=== PATIENT | female | born 1995 | race Native Hawaiian/Other Pacific Islander ===

== ENCOUNTER 2017-03-29 17:13 | Outpatient (CLI) | payer OTHER ==
[~2017-03-29] VITALS: Ht 170.2 cm; Wt 104.0 kg
[2017-03-29 17:32] VITALS: BP 108/63
[2017-03-29] MEDS ORDERED: PRENTAB9 PO (18:07)
[2017-03-29 18:20] VITALS: BP 122/67
--- NOTE | 2017-03-30 12:51 | HPE ---
DATE OF ADMISSION: 03/29/2017 A 21-year-old 2, para 0, abortio 1 at 6 weeks, last menstrual period (LMP) 06/29/2016, estimated date of confinement (EDC) 04/05/2017 at 39 weeks, has decreased movement today. Risk factors are increased weight gain in the , low-grade squamous intraepithelial lesion (LGSIL) on Pap and has had a urinary tract infection (UTI) at the beginning of . Test of cure was negative. LABORATORY DATA: O+, HIV negative, RPR negative, rubella immune. Varicella immune. Pap is LGSIL. Urine was positive, test of cure negative. Gonorrhea and chlamydia are negative. Early one-hour glucose 75, 28-week GTT 106. GBS is negative. Quad screen is negative and CF was negative. PHYSICAL EXAMINATION: On examination, no acute distress. Symphysis fundus height is 39, vertex presenting, nontender uterus. Category 1 strip. No contractions. No vaginal bleeding or loss. Blood pressure is 108/63, respirations are 18, pulse 71, temperature is 97.4. The rest of the examination is unremarkable. She is normocephalic, atraumatic. Neck: Full range of motion. Pupils are equal and reactive to light. Distal pulses are symmetric. No evidence of deep vein thrombosis (DVT), pulmonary embolism (PE), or superficial phlebitis. Chest is clear bilaterally to the bases. No wheezes or rhonchi. No costovertebral angle (CVA) tenderness. Abdomen is soft. Four quadrant bowel sounds are noted and nontender uterus. No rashes or pruritus. No arthralgia or myalgia. No complaints of cough, wheezes, shortness of breath, or dyspnea on exertion. No chest pain. Not bleeding. Neurologically complete. No nausea, vomiting, diarrhea, or constipation. No urgency or frequency. No diabetic issues. 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 No family history. She does not smoke, drink or abuse drugs. She is and there is no domestic violence. In summary, we have a 39 weeker with a category 1 strip with improved movements. The patient was discharged with instructions regarding kick chart, premature rupture of membranes, bleeding and labor. She has an appointment 04/02/2017.
[2017-06-23] MEDS ORDERED: IRON1TAB PO (13:14)
== END 2017-03-29 18:20 | disposition home or self-care (01) ==
LOC: M LDO 17:13
PROVIDERS: ATTEND Obstetrics & Gynecology
DX: O36.8130 Decreased fetal movements, third trimester, not applicable or unspecified (principal); O26.03 Excessive weight gain in pregnancy, third trimester; O34.40 Maternal care for other abnormalities of cervix, unspecified trimester; R87.612 Low grade squamous intraepithelial lesion on cytologic smear of cervix (LGSIL); Z3A.39 39 weeks gestation of pregnancy

== ENCOUNTER 2017-04-04 14:56 | Inpatient (IN) | payer OTHER ==
[~2017-04-04] VITALS: Ht 170.2 cm; Wt 104.0 kg
[2017-04-04] VITALS (24 sets, daily range): BP systolic 102–144; BP diastolic 53–85
[~2017-04-04 14:56] MED LIST: PRENTAB9 PO
[2017-04-04] MEDS ORDERED: ACET50TA PO (15:15)
[2017-04-04] MEDS ORDERED: LACTATED RINGER'S 1000 ML IV STA (16:38)
[2017-04-04] MEDS ORDERED: LR 1,000 ML IV SCH (16:38)
--- NOTE | 2017-04-04 16:53 | HPEPDOC ---
Obstetrical History & Physical General Date of Admission Apr 04, 2017 at 16:35 History of Present Illness 21 y/o at 39+6 to L&D for a continuous LOF that started late AM. No VB. Some ctx's. Pos FM. Chief Complaint: Contractions, term Information Provided By: Patient Care Care: Good Care Dating Final EDC by: LMP, 1st trimester (US) Antepartum Course Diagnos(e)s UTI at NOB. 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 (x1) Past Medical History Medical History counseling for depression, no meds Surgical History: Denies/None Family History Significant Family History: No pertinent family hx Social History Marital Status: Family situation: Spouse/partner home Psychosocial History: No pertinent psych hx * Smoker: non-smoker Alcohol: Denies Drugs: denies Abuse Violence Screening Have you been hit/kicked/slapp: No Have you been sexually assault: No Imunizations Tdap status: current Influenza Status: current Allergies Coded Allergies: No Known Allergies (Unverified , 03/29/17) Medications Scheduled Acetaminophen (Mapap) 500 Mg Tab, 500 MG PO DAILY Multivitamins/ ( 27-0.8 mg) 1 Tab Tab, 1 TAB PO DAILY Physical Examination Physical Examination GENERAL: Alert and oriented times three. ABDOMEN: Gravid and non-tender to touch. FETUS: vertex (VTX) by sterile vaginal examination (SVE), SSE shows pooling that is significant and nitr pos. EXTREMITIES: No edema. No clonus. Vital Signs/I&O Vital Signs Date Time Temp Pulse Resp B/P (MAP) Pulse Ox O2 Delivery O2 Flow Rate FiO2 04/04/17 15:16 18 Laboratory Data Urine Culture: No Growth (second cultrure, firts with UTI that was tx'd.) Pertinent Laboratoy Data Blood Type: O+ RBC Antibody Screen: Negative HIV: Negative Hepatitis B: Negative Hepatitis C: Unknown Rapid Plasma Reagin: Nonreactive Rubella: Immune Varicella: Immune Chlamydia/Gonorrhea: Negative Group B Streptococcus: Negative Quad Screen Test: Negative Cystic Fibrosis: Negative Glucose Tolerance Test: 106 Anatomy Ultrasound Placenta Location: Anterior Normal Anatomy: Yes Placenta Previa: No Estimated Weight (grams): 3400 Vaginal Examination Dilation: 3 cm Effacement: 75% Station: -2 Cervical Consistency: Medium Cervical Position: Middle Presentation: Cephalic presentation Assessment Variability: Moderate Accelerations: Positive Decelerations: None Tocometer Frequency: regular Duration: greater than 60 seconds Assessment/Plan Assessment SROM confirmed. Cx /-2. Plan Admit and orient. 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 Diet: clrs Group B Streptococcus (GBS) neg Labs and intravenous (IV) per unit protocol. Counseled on Pitocin possibility Lactated Ringers (LR): Bolus 1000 prior to epidural, o/w 125/hr Anticipate normal spontaneous delivery () C-S as appropriate. Sessions SESSIONS,JOEL Zhang MD Apr 04, 2017 16:53
[2017-04-04 17:40] LABS: MEAN CORPUSCULAR HEMOGLOBIN 29.8 pg (27.0-33.0); MEAN CORPUSCULAR HGB CONC 34.2 g/dl (32.0-36.5); MEAN CORPUSCULAR VOLUME 87.1 fl (80.0-96.0); RED CELL DISTRIBUTION WIDTH 12.6 % (11.5-14.5)
--- NOTE | 2017-04-04 21:10 | IPNPDOC ---
Text Note Date of Service The patient was seen on 04/04/17. NOTE ~4 hrs from admit NST Cat 2 with mod jani, pos accels, random early/variable decels, no lates. Reg ctx's. Cx /, good progress Doing well. Recheck in ~2 hrs, sooner prn VS,Fishbone, I+O VS, Fishbone, I+O Laboratory Tests 04/04/17 17:26 Red Blood Count 4.09, Mean Corpuscular Volume 87.1, Mean Corpuscular Hemoglobin 29.8, Mean Corpuscular Hemoglobin Concent 34.2, Red Cell Distribution Width 12.6 Vital Signs Date Time Temp Pulse Resp B/P (MAP) Pulse Ox O2 Delivery O2 Flow Rate FiO2 04/04/17 20:22 50 18 128/69 (88) 04/04/17 18:36 74 04/04/17 15:31 97.4 SESSIONS,JOEL Zhang MD Apr 04, 2017 21:10
[2017-04-04] MEDS ORDERED: FENTANYL 2MCG/ML ROPIVACAINE 0.2% IN 0.9% NACL 200ML IVBAG As Ordered ONE (21:54)
[2017-04-04] MEDS ORDERED: FENTANYL/ROPIVACAINE/NACL BAG 200 ML EPIDURAL SCH (23:30)
[2017-04-04] MEDS ORDERED: ONDANSETRON 4MG/2ML VIAL (J2405) IV PRN (23:30)
[2017-04-04] MEDS ORDERED: ePHEDrine SULFATE 25 MG/5 ML(5MG/ML) SYRINGE IV PRN (23:30)
[2017-04-04] MEDS ORDERED: REFRIGERATOR IV KEYS XX PRN (23:30)
[2017-04-04] MEDS ORDERED: EPIDURAL COMMENT XX SCH (23:30)
[2017-04-04] MEDS ORDERED: NALOXONE INJ 0.4 MG/1 ML VIAL (J2310) IV PRN (23:30)
[2017-04-04] MEDS ORDERED: diphenhydrAMINE INJ 50MG/ML VIAL (J1200) IV PRN (23:30)
[2017-04-04] MEDS ORDERED: EPIDURAL/PCA KEYS XX PRN (23:30)
[2017-04-05] VITALS (11 sets, daily range): BP systolic 102–122; BP diastolic 49–68
[2017-04-05] MEDS ORDERED: OXYTOCIN 30 UNITS IN 0.9% NaCl 500ML IV BAG (J2590) As Ordered ONE (00:43)
--- NOTE | 2017-04-05 01:21 | IPNPDOC ---
Text Note Date of Service The patient was seen on 04/05/17. NOTE late entry for event at ~2330. Prolonged decel that eventually responded to standard maneuvers, LR bolus, O2 and multiple pos changes. Cx then was Plan was to check in ~2 hrs, sooner prn Sessions MD CUMMINGS,Dat, I+O VSDat I+O Laboratory Tests 04/04/17 17:26 Red Blood Count 4.09, Mean Corpuscular Volume 87.1, Mean Corpuscular Hemoglobin 29.8, Mean Corpuscular Hemoglobin Concent 34.2, Red Cell Distribution Width 12.6 Vital Signs Date Time Temp Pulse Resp B/P (MAP) Pulse Ox O2 Delivery O2 Flow Rate FiO2 04/04/17 23:53 71, 65 16 113/66 (82) 04/04/17 18:36 74 04/04/17 15:31 97.4 I&O- Last 24 Hours up to 6 AM 04/05/17 05:59 Intake Total 2700 ml Balance 2700 ml SESSIONS,JOEL Zhang MD Apr 05, 2017 01:20
[2017-04-05] MEDS ORDERED: OXYTOCIN DRIP 30 UNITS in APPROPRIATE DILUENT 1 EA IV SCH (01:25)
--- NOTE | 2017-04-05 01:25 | DNPDOC ---
[facility] Delivery Note Delivery Note DATE OF DELIVERY: 19AUG PREDELIVERY DIAGNOSIS: 40 0/7 weeks' gestation and labor. POST DELIVERY DIAGNOSIS: Delivered. 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 FINDINGS: 7 pound 10 ounce male infant, Score 8/10, nuchal cord times 1, reduced. DELIVERY SUMMARY: Called to room, fully and pushing very well. Very little delay of the vtx or the right ant/left post shoulder, single nuchal easily reduced. To abd, good tone/cry. Cord C/C by FOB. Cord blood. Placenta intact , fundus firm with pit going. Bilat labial lacs repaired with 3-0 vicryl, good cosmesis/hemostasis. Uncomplicated. Sessions MD GARCIA,JOEL Zhang MD Apr 05, 2017 01:25
[2017-04-05] MEDS ORDERED: IBUPROFEN 800 MG TAB PO PRN (01:30)
[2017-04-05] MEDS ORDERED: DIBUCAINE 1% OINTMENT 30GM TOP PRN (01:30)
[2017-04-05] MEDS ORDERED: METOCLOPRAMIDE INJ 10MG/2ML VIAL (J2765) IV PRN (01:30)
[2017-04-05] MEDS ORDERED: RHOGAM 300 MCG (1500 IU) INJ (J2790) IM SCH (01:30)
[2017-04-05] MEDS ORDERED: MEASLES,MUMPS,RUBELLA VACCINE INJ (MMR-II) (90707) SC SCH (01:30)
[2017-04-05] MEDS: ACETAMINOPHEN TAB 650MG DOSE (2X325MG) PO PRN ×2 (07:53→18:02)
[2017-04-05] MEDS: DOCUSATE SODIUM 100 MG CAP PO SCH ×2 (07:53→21:46)
[2017-04-05] MEDS: PRENATAL VITAMINS CHEWABLE TABLET PO SCH (07:53)
[2017-04-06] MEDS: ACETAMINOPHEN TAB 650MG DOSE (2X325MG) PO PRN (05:43)
[2017-04-06 06:06] VITALS: BP 125/56
[2017-04-06] MEDS: PRENATAL VITAMINS CHEWABLE TABLET PO SCH (07:55)
[2017-04-06] MEDS: DOCUSATE SODIUM 100 MG CAP PO SCH ×2 (07:55→20:52)
[2017-04-06 18:00] VITALS: BP 120/67
[2017-04-07] MEDS: ACETAMINOPHEN TAB 650MG DOSE (2X325MG) PO PRN (04:51)
[2017-04-07 06:30] VITALS: BP 130/59
[2017-04-07] MEDS: PRENATAL VITAMINS CHEWABLE TABLET PO SCH (08:01)
[2017-04-07] MEDS: DOCUSATE SODIUM 100 MG CAP PO SCH (08:01)
[2017-04-07] MEDS ORDERED: IBUP-1114 PO (09:15)
[2017-04-07] MEDS ORDERED: COLA100C5 PO (09:15)
[2017-04-07] MEDS ORDERED: PRENTAB9 PO (09:15)
[2017-04-07] MEDS ORDERED: ACET50TA PO (09:15)
[2017-04-07] MEDS ORDERED: NUPE1OIN2 TOP (09:15)
[2017-06-23] MEDS ORDERED: IRON1TAB PO (13:14)
== END 2017-04-07 11:10 | disposition home or self-care (01) | DRG 775 ==
LOC: M LDO 14:56 → M LDI 16:35 → M OBS 04-05 03:10
PROVIDERS: ADMIT Obstetrics & Gynecology; ATTEND Obstetrics & Gynecology
PROC: 10E0XZZ Delivery of Products of Conception, External Approach (ICD-10-PCS; principal; 2017-04-05)
PROC: 0HQ9XZZ Repair Perineum Skin, External Approach (ICD-10-PCS; 2017-04-05)
DX: O69.82X0 Labor and delivery complicated by other cord entanglement, without compression, not applicable or unspecified (principal); Z37.0 Single live birth; O70.0 First degree perineal laceration during delivery

== ENCOUNTER 2018-09-11 11:27 | Emergency (ER) | payer OTHER ==
[~2018-09-11] VITALS: Ht 170.2 cm; Wt 77.3 kg
[~2018-09-11 11:27] MED LIST changes: +COLA100C5 PO; +IBUP-1114 PO; +IRON1TAB PO; +MAPA500T2 PO; +NUPE1OIN2 TOP
[2018-09-11 11:28] VITALS: BP 111/57
[2018-09-11] MEDS ORDERED: AMOX500C PO (12:36)
[2018-09-11] MEDS ORDERED: MAGICMW SSP (12:36)
== END 2018-09-11 12:42 | disposition home or self-care (01) ==
LOC: M ED 11:27
DX: J02.0 Streptococcal pharyngitis (principal)